=== PATIENT | male | born 1980 | race Caucasian/White ===

== ENCOUNTER 2016-07-06 10:11 | Emergency (ER) | payer MEDICAID ==
[~2016-07-06] VITALS: Ht 172.7 cm; Wt 86.2 kg
[2016-07-06] MEDS ORDERED: ONDANSETRON 4 MG/2 ML VIAL IVP ONE (10:20)
[2016-07-06] MEDS ORDERED: FAMOTIDINE 20 MG/2 ML VIAL IVP ONE (10:20)
[2016-07-06] MEDS ORDERED: NACL 0.9% 1,000 ML IV SCH (10:20)
--- NOTE | 2016-07-06 10:20 | NUR ---
Patient ambulated to bed 4. RN evaluating patient at bedside.
[2016-07-06 10:21] VITALS: BP 155/94
--- NOTE | 2016-07-06 10:22 | NUR ---
35M BIB SELF C/O ACHING EPIGASTRIC PAIN, NON-RADIATING, 7/10 X YESTERDAY; PT STATES HAS NAUSEA, BUT DENIES VOMITING/DIARRHEA AT THIS TIME; ABDOMEN SOFT, NON-TENDER, ACTIVE BOWEL SOUNDS X 4 QUADRANTS; PT A&OX4, PERRLA, BL LUNG SOUNDS CLEAR, RR EVEN/UNLABORED, SKIN IS WARM/DRY/INTACT AT THIS TIME; STEADY GAIT; PT RESTING IN BED W/ HOB ELEVATED AND IN LOWEST POSITION; POSITIONED FOR COMFORT; ER MD MADE AWARE OF STATUS. WILL CONTINUE TO MONITOR.
--- NOTE | 2016-07-06 11:30 | NUR ---
Patient appears to be resting comfortably in bed. Vital Signs within normal limits. Respirations even and unlabored. WILL CONTINUE TO MONITOR.
--- NOTE | 2016-07-06 11:46 | NUR ---
IV removed, catheter intact and site benign. Applied folded 4x4 gauze and tape to stop bleeding. PT TOLERATED PROCEDURE WELL.
[2016-07-06 11:47] VITALS: BP 148/96
--- NOTE | 2016-07-06 11:47 | NUR ---
Patient discharged with v/s stable. Written and verbal after care instructions given and explained. Patient alert, oriented and verbalized understanding of instructions. Ambulatory with steady gait. All questions addressed prior to discharge. ID band removed. Patient advised to follow up with PMD. Rx of BENTYL 20MG TAB & RANITIDINE HYDROCHLORIDE 150MG TAB given. Patient educated on indication of medication including possible reaction and side effects. Opportunity to ask questions provided and answered.
== END 2016-07-06 11:47 | disposition home or self-care (01) ==
LOC: MED 10:11
DX: R10.13 Epigastric pain (principal); F19.10 Other psychoactive substance abuse, uncomplicated; F12.90 Cannabis use, unspecified, uncomplicated
CPT/HCPCS: 36415; 80053; 80305; 81001; 82150; 83690; 85025; 96361; 96374; 96375; 99284; J2405; J3490; J7030